=== PATIENT | female | born 1960 | race Caucasian/White ===

== ENCOUNTER 2017-07-15 09:58 | Emergency (ER) | payer BC ==
[2017-07-15 11:06] VITALS: BP 142/78; PULSE 84; RESP 18; TEMP 98; O2SAT 96
--- NOTE | 2017-07-15 12:48 | CT ---
PROCEDURE: CT HEAD WITHOUT CONTRAST. HISTORY: headache COMPARISON: None available. TECHNIQUE: Axial computed tomography images were obtained through the head/brain without intravenous contrast. Radiation dose: Total exam DLP = 788.92 mGy-cm. This CT exam was performed using one or more of the following dose reduction techniques: Automated exposure control, adjustment of the mA and/or kV according to patient size, and/or use of iterative reconstruction technique. FINDINGS: HEMORRHAGE: No intracranial hemorrhage. BRAIN: No mass effect or edema. Scattered tiny calcifications may be related to remote infection or inflammation. No atrophy or chronic microvascular ischemic changes. VENTRICLES: No hydrocephalus. CALVARIUM: Unremarkable. PARANASAL SINUSES: Unremarkable as visualized. No significant inflammatory changes. MASTOID AIR CELLS: Unremarkable as visualized. No inflammatory changes. OTHER FINDINGS: None. IMPRESSION: Scattered tiny calcifications may be related to remote infection or inflammation.
--- NOTE | 2017-07-15 12:56 | CT ---
PROCEDURE: CT ORBITS WITHOUT CONTRAST. HISTORY: facial injury COMPARISON: None available. TECHNIQUE: Axial CT images of the orbits were obtained. Coronal and sagittal reformats were generated. Radiation dose: Total exam DLP = 661.89 mGy-cm. This CT exam was performed using one or more of the following dose reduction techniques: Automated exposure control, adjustment of the mA and/or kV according to patient size, and/or use of iterative reconstruction technique. FINDINGS: RIGHT ORBIT: RIGHT BONY ORBIT: No acute fracture or destructive bony lesion identified. RIGHT INTRAORBITAL STRUCTURES: Globe: Normal. Extraocular muscles: Normal. Post septal space: Normal. Optic Nerve: Unremarkable. Lacrimal Apparatus: Unremarkable. RIGHT PRESEPTAL SOFT TISSUES: Borderline limited preseptal edema. LEFT ORBIT: LEFT BONY ORBIT: No acute fracture or destructive bony lesion identified. LEFT INTRAORBITAL STRUCTURES: Globe: Normal. Extraocular muscles: Normal. Post septal space: Normal Optic Nerve: Unremarkable. . Lacrimal Apparatus: Unremarkable. LEFT PRESEPTAL SOFT TISSUES: Normal. OTHER: Mild right frontal scalp soft tissue edema identified. IMPRESSION: No fracture identified or disturbance of the orbital soft tissues bilaterally.
[2017-07-15 13:07] LABS: BASO # 0.1 K/uL (0.0-0.2); BASO % 0.7 % (0.0-2.0); EOS # 0.3 K/uL (0.0-0.7); EOS % 3.4 % (0.0-4.0); LYMPH # 2.8 K/uL (1.0-4.3); LYMPH % 36.9 % (20.0-40.0); MEAN CORPUSCULAR HEMOGLOBIN 30.5 pg (27.0-31.0); MEAN CORPUSCULAR HGB CONC 33.9 g/dL (33.0-37.0); MEAN PLATELET VOLUME 8.4 fl (7.2-11.7); MONO # 0.3 K/uL (0.0-0.8); MONO % 3.4 % (0.0-10.0); NEUT # 4.3 K/uL (1.8-7.0); NEUT % 55.6 % (50.0-75.0); NRBC % 0.1 % (0.0-0.0); RED CELL DISTRIBUTION WIDTH 13.8 % (11.5-14.5); WHITE BLOOD COUNT 7.7 K/uL (4.8-10.8)
[2017-07-15 13:17] LABS: ALB/GLOB RATIO 1.4 (1.0-2.1); ALKALINE PHOSPHATASE 84 U/L (38-126); ALT/SGPT 37 U/L (9-52); AST/SGOT 23 U/L (14-36); BILIRUBIN,TOTAL 0.3 mg/dl (0.2-1.3); BLOOD UREA NITROGEN 14 mg/dl (7-17); CALCIUM 9.6 mg/dL (8.4-10.2); CARBON DIOXIDE 29 mmol/L (22-30); CHLORIDE 104 mmol/L (98-107); GFR AFRICAN-AMERICAN > 60; GLUCOSE,RANDOM 92 mg/dL (65-105); POTASSIUM 4.2 MMOL/L (3.6-5.0); SODIUM 142 mmol/l (132-148); TOTAL PROTEIN 7.9 G/DL (6.3-8.2)
--- NOTE | 2017-07-15 13:51 | ED PDOC ---
HPI: Trauma/Fall - HPI Time Seen by Provider: 07/15/17 10:44 Chief Complaint (Nursing): Headache Chief Complaint (Provider): Head injury History Per: Patient History/Exam Limitations: no limitations Onset/Duration Of Symptoms: Days (x5) Injury Occurred (Timing): Days Ago: (5) Location Of Injury: Right: Head, Left: Head Associated Symptoms: denies: LOC Additional Complaint(s): Nan Tucker is a 56 year old female, with a past medical history of hypertension, who presents to the emergency department after she tripped and fell x5 days ago on Friday. Patient fell on uneven sidewalk and hit her face on the ground. She denies loss of consciousness, but periorbital ecchymosis noted. Patient denies any complaints of headache, nausea, vomit, fever or shortness of breath. No further medical complaints. PMD: None provided. Past Medical History Reviewed: Historical Data, Nursing Documentation, Vital Signs Vital Signs: Last Vital Signs Temp 98 F 07/15/17 10:59 Pulse 84 07/15/17 10:59 Resp 18 07/15/17 10:59 BP 142/78 07/15/17 10:59 Pulse Ox 96 07/15/17 13:59 - Medical History PMH: HTN - Surgical History Surgical History: - Family History Family History: States: Unknown Family Hx - Social History Current smoker - smoking cessation education provided: No Alcohol: None Drugs: Denies - Home Medications Home Medications: Ambulatory Orders Medication Instructions Recorded traMADol [Ultram] 50 mg PO Q6H PRN #15 tab 11/10/14 - Allergies Allergies/Adverse Reactions: Allergies Allergy/AdvReac Type Severity Reaction Status Date / Time No Known Allergies Allergy Verified 07/15/17 12:01 Review of Systems ROS Statement: Except As Marked, All Systems Reviewed And Found Negative Constitutional: Negative for: Fever Eyes: Positive for: Other (periorbital ecchymosis) Respiratory: Negative for: Shortness of Breath Gastrointestinal: Negative for: Nausea, Vomiting Neurological: Negative for: Headache Physical Exam - Reviewed Nursing Documentation Reviewed: Yes Vital Signs Reviewed: Yes - Physical Exam Appears: Positive for: Well, Non-toxic, No Acute Distress Head Exam: Positive for: ATRAUMATIC, NORMAL INSPECTION, NORMOCEPHALIC Skin: Positive for: Normal Color, Warm, DRY Eye Exam: Positive for: Normal appearance, EOMI, PERRL Neck: Positive for: Normal, Painless ROM, Supple Cardiovascular/Chest: Positive for: Regular Rate, Rhythm. Negative for: Murmur Respiratory: Positive for: Normal Breath Sounds. Negative for: Respiratory Distress Extremity: Positive for: Normal ROM. Negative for: Deformity, Swelling Neurologic/Psych: Positive for: Alert, Oriented Comments: Multiple areas of ecchymosis on face. No step offs, no open skin, no cellulitis. - Laboratory Results Result Diagrams: 07/15/17 12:53 07/15/17 12:53 - ECG O2 Sat by Pulse Oximetry: 96 (RA) Pulse Ox Interpretation: Normal Medical Decision Making Medical Decision Making: Initial Impression: Facial injury Initial Plan: --Head w/o contrast [CT] --Orbits/ Facials w/o contrast [CT] --Comp Metabolic Panel --CBC w/ differential --reevaluation [address] FINDINGS: HEMORRHAGE: No intracranial hemorrhage. BRAIN: No mass effect or edema. Scattered tiny calcifications may be related to remote infection or inflammation. No atrophy or chronic microvascular ischemic changes. VENTRICLES: No hydrocephalus. CALVARIUM: Unremarkable. PARANASAL SINUSES: Unremarkable as visualized. No significant inflammatory changes. MASTOID AIR CELLS: Unremarkable as visualized. No inflammatory changes. OTHER FINDINGS: None. IMPRESSION: Scattered tiny calcifications may be related to remote infection or inflammation. [address] FINDINGS: RIGHT ORBIT: RIGHT BONY ORBIT: No acute fracture or destructive bony lesion identified. RIGHT INTRAORBITAL STRUCTURES: Globe: Normal. Extraocular muscles: Normal. Post septal space: Normal. Optic Nerve: Unremarkable. Lacrimal Apparatus: Unremarkable. RIGHT PRESEPTAL SOFT TISSUES: Borderline limited preseptal edema. LEFT ORBIT: LEFT BONY ORBIT: No acute fracture or destructive bony lesion identified. LEFT INTRAORBITAL STRUCTURES: Globe: Normal. Extraocular muscles: Normal. Post septal space: Normal Optic Nerve: Unremarkable. . Lacrimal Apparatus: Unremarkable. LEFT PRESEPTAL SOFT TISSUES: Normal. OTHER: Mild right frontal scalp soft tissue edema identified. IMPRESSION: No fracture identified or disturbance of the orbital soft tissues bilaterally. 1400 -Labs normal and patient will be discharged home. Scribe Attestation: Documented by Clifford Reza, acting as a scribe for Toma Rutherford MD Provider Scribe Attestation: All medical record entries made by the Scribe were at my direction and personally dictated by me. I have reviewed the chart and agree that the record accurately reflects my personal performance of the history, physical exam, medical decision making, and the department course for this patient. I have also personally directed, reviewed, and agree with the discharge instructions and disposition. Disposition - Clinical Impression Clinical Impression: Headache - Disposition Referrals: [facility] [Outside] [facility] [Outside] Disposition Time: 14:00 Condition: IMPROVED Additional Instructions: follow up with your primary doctor in 1-2 days return to the ED with any worsening or concerning symptoms. Instructions: Fall Prevention for Older Adults (ED), Fall Prevention (ED), General Headache (ED) Forms: [employer] ([place]) Print Language: ENGLISH
== END 2017-07-15 12:50 | disposition home or self-care (01) ==
LOC: H.ER 09:58
DX: S09.90XA Unspecified injury of head, initial encounter (principal); S09.93XA Unspecified injury of face, initial encounter; W19.XXXA Unspecified fall, initial encounter; Y92.480 Sidewalk as the place of occurrence of the external cause; I10 Essential (primary) hypertension